=== PATIENT | female | born 1985 | race African-American/Black ===

== ENCOUNTER 2017-03-23 08:39 | Observation (INO) | payer OTHER ==
[~2017-03-23 08:39] MED LIST: DEPO SHOT
--- OUTSIDE RECORDS SUMMARY | 2017-03-23 08:42 | XMS REPORT | Clinical Summary ---
Author Author [facility] Address Unknown Phone Unavailable Care Team Providers Care Physical Science Technician Name Role Phone Brit Castro MD PCP Allergies Active Allergy Reactions Severity Noted Date Comments No Known Drug Allergies 05/25/2015 Current Medications Prescription Sig. Disp. Refills Start End Date Status Date medroxyPROGESTERone 150 09/15/19 Active mg/mL syringe 16 Active Problems Problem Noted Date Nasal congestion 05/25/2015 Family History Medical History Relation Name Comments Breast cancer Maternal Aunt 2 aunts Hypertension Mother Vitiligo Mother Relation Name Status Comments Cousin benign brain tumors Maternal Aunt Mother Alive Social History Tobacco Use Types Packs/Day Years Used Date Current Every Day Smoker Cigars 4 Smokeless Tobacco: Never Used Comments: 1 cigar a day Alcohol Use Drinks/Week oz/Week Comments Yes 2 Glasses of 1.2 wine Sex Assigned at Date Recorded Not on file Last Filed Vital Signs Not on file Plan of Treatment Health Maintenance Due Date Last Done Comments INFLUENZA VACCINE 09/05/2016 PAP SMEAR 04/06/2018 04/07/2015 Results Not on fileafter 03/22/2016 Insurance Payer Benefit Subscriber ID Type Phone Address Plan / Group [facility] xxxxxxxxx HMO/PPO THCARE CHOICE/CHO ICE +
[2017-03-23] MEDS ORDERED: CEFOXITIN SOD 1 GM VIAL ONE (09:18)
[2017-03-23] MEDS ORDERED: CLINDAMYCIN PHOS 900MG/ D5W 50 50 ML IV ONE (09:18)
[2017-03-23] MEDS ORDERED: BACITRACIN 50,000 UNIT VIAL ONE (09:29)
[2017-03-23] MEDS ORDERED: IOPAMIDOL 610MG/1ML 300 MG/ML VIAL IV ONE (09:29)
[2017-03-23] MEDS ORDERED: BUPIVACAINE 0.25% 30ML SDV INJ ONE (09:29)
[2017-03-23] MEDS ORDERED: LIDOCAINE 1% W/EPINEPHRINE 20 ML VIAL ONE (09:48)
[2017-03-23] MEDS ORDERED: NEOSTIGMINE 1 MG/ML 10ML VIAL ONE (09:48)
[2017-03-23] MEDS ORDERED: METHYLENE BLUE 1% INJ 10 ML VIAL INJ ONE (11:11)
[2017-03-23] MEDS ORDERED: HYDROMORPHONE 1MG/1ML INJ ONE (12:50)
[2017-03-23] MEDS ORDERED: LIDOCAINE HCL 2% LOCAL INJ 5 ML SDV VIAL INJ ONE (13:31)
[2017-03-23] MEDS ORDERED: PROPOFOL IV EMULSION 10 MG/ML 20 ML VIAL ONE (13:31)
[2017-03-23] MEDS ORDERED: SEVOFLURANE INHAL SOLN 250 ML PEN BTL ONE (13:31)
[2017-03-23] MEDS ORDERED: DEXAMETHASONE SOD PHOS INJ 4 MG/ML VIAL ONE (13:31)
[2017-03-23] MEDS ORDERED: ONDANSETRON HCL INJ 2 MG/ML VIAL ONE (13:31)
[2017-03-23] MEDS: D5.45%NS/KCL 20MEQ 1,000 ML IV SCH ×2 (13:42→21:21)
[2017-03-23] MEDS ORDERED: BISACODYL 5 MG TAB EC PO PRN (13:45)
[2017-03-23] MEDS ORDERED: HYDROCODONE/APAP 5MG-325MG TAB PO PRN (13:45)
[2017-03-23] MEDS ORDERED: PROMETHAZINE HCL (IM) 25 MG/ML VIAL IV PRN (13:45)
[2017-03-23] MEDS ORDERED: MORPHINE SULFATE 2 MG/ML SYR IV PRN (13:45)
[2017-03-23] MEDS ORDERED: DIPHENHYDRAMINE HCL 25 MG CAP PO PRN (13:45)
[2017-03-23] MEDS ORDERED: DOCUSATE SODIUM 100 MG CAP PO PRN (13:45)
--- OUTSIDE RECORDS SUMMARY | 2017-03-23 14:13 | XMS REPORT | Clinical Summary ---
Author Author [facility] Address Unknown Phone Unavailable Care Team Providers Care Machinist Brake Name Role Phone Brit Castro MD PCP [...] ID Type Phone Address Plan / Group [facility] xxxxxxxxx HMO/PPO THCARE CHOICE/CHO ICE +
[2017-03-23 14:46] VITALS: BP 114/59
[2017-03-23 16:36] VITALS: BP 130/82
[2017-03-23] MEDS: HYDROMORPHONE 1MG/1ML INJ IV PRN ×2 (16:37→23:41)
[2017-03-23] MEDS: CLINDAMYCIN PHOS 900MG/ D5W 50 50 ML IV SCH (18:00)
[2017-03-23] MEDS ORDERED: FENTANYL CITRATE/PF 100MCG/2 ML INJ ONE (18:23)
[2017-03-23] MEDS ORDERED: MIDAZOLAM HCL 2 MG/2 ML VIAL ONE (18:23)
[2017-03-23 18:30] VITALS: BP 130/82
--- NOTE | 2017-03-23 19:20 | History and Physical ---
HISTORY OF PRESENT ILLNESS: Patient was has hospitalized immediately postop. See operative notes from the patient's urologist. No known drug allergies. Prior admission meds included only Depo-Provera every 3 months by the patient's building trades instructor. On complete review of systems the patient denies current adverse symptoms. No chronic illnesses according to the patient. 4, spontaneously aborted twice. Two vaginal deliveries. One caesarean delivery. One set of twins. Cerclage with last 2015. History has included mixed incontinence. Intermittent urinary tract infections, overactive bladder, and bladder neck obstruction per prior notes. Excision of sling, cystoscopy, retrograde pyelograms, planned procedures this morning. Electronic medical record charted lab includes negative test. Retrograde pyelogram done. Report pending. EXAM VITALS: Temperature 97.6. Pulse 82 and regular. Respiratory rate 18. Blood pressure 130/82, O2 sat 98%. HEENT: No icterus or pallor. Pupils round, reactive. Throat clear. NECK: Supple. Carotids palpable. PULMONARY: Auscultation S1, S2 within normal limits. Lungs clear. ABDOMEN: Soft. Overweight. Bowel sounds normal. EXTREMITIES: Free of edema clubbing or cyanosis. NEURO: DTRs 1+ symmetrical. Babinski's negative. Sensorium is clear. CURRENT IMPRESSION: Status post fixation ureteral saline repair excision of fistulas, excision on sutures. See operative note as mentioned. To continue followup. See postop orders. Including broad-spectrum antibiotics per . Home when clear with . Job#: [id number]
[2017-03-23 20:00] VITALS: BP 111/69
[2017-03-23] MEDS: CEFOXITIN 2GM/ D5W 50ML 50 ML IV SCH (20:00)
[2017-03-24] VITALS: BP 104/55
[2017-03-24 00:19] VITALS: BP 104/33
[2017-03-24] MEDS: CEFOXITIN 2GM/ D5W 50ML 50 ML IV SCH (01:33)
[2017-03-24] MEDS: CLINDAMYCIN PHOS 900MG/ D5W 50 50 ML IV SCH ×2 (02:15→09:28)
[2017-03-24] MEDS: D5.45%NS/KCL 20MEQ 1,000 ML IV SCH (02:16)
[2017-03-24] MEDS: HYDROMORPHONE 1MG/1ML INJ IV PRN ×2 (03:48→09:28)
[2017-03-24 04:00] VITALS: BP 104/82
[2017-03-24 05:36] LABS: BASOPHILS % 0.2 % (0.0-1.0); EOSINOPHILS % 0.3 % (0.0-6.0); HEMATOCRIT 26.9 % (34.2-44.1); HEMOGLOBIN 8.7 g/dL (12.0-16.0); LYMPHOCYTES # (AUTO) 2.5 (1.0-3.2); LYMPHOCYTES % 17.9 % (18.0-39.1); MEAN CORPUSCULAR HGB CONC 32.3 g/dL (31-35); MEAN CORPUSCULAR VOLUME 89.7 fL (81-99); MONOCYTES # (AUTO) 1.2 (0.2-0.8); MONOCYTES % 8.7 % (4.4-11.3); NEUTROPHILS # (AUTO) 10.1 (2.1-6.9); NEUTROPHILS % 72.5 % (38.7-80.0); PLATELET COUNT 200 x10e3/uL (140-360); RED CELL DISTRIBUTION WIDTH 13.3 % (11.7-14.4)
[2017-03-24 05:54] LABS: ANION GAP 10.8 mmol/L (8-16); BLOOD UREA NITROGEN 7 mg/dL (7-26); BUN/CREATININE RATIO 10 (6-25); CALCIUM 7.8 mg/dL (8.4-10.2); CARBON DIOXIDE 21 mmol/L (22-29); CHLORIDE 109 mmol/L (98-107); CREATININE, SERUM 0.73 mg/dL (0.57-1.11); EST GLOMERULAR FILTRATION RATE > 60 ML/MIN (60-); GLUCOSE 125 mg/dL (74-118); POTASSIUM 3.8 mmol/L (3.5-5.1); SODIUM 137 mmol/L (136-145)
[2017-03-24 07:54] VITALS: BP 103/58
[2017-03-24 09:53] VITALS: BP 103/58
[2017-03-24] MEDS ORDERED: PROMETHAZINE 12.5MG/ NACL 0.9% 50 ML IV PRN (11:45)
[2017-03-24 12:05] VITALS: BP 110/62
--- NOTE | 2017-03-25 10:34 | Discharge Summary ---
See also operative notes. The patient was hospitalized immediately postoperatively. History had included mixed incontinence, recurrent urinary tract infections, overactive bladder, and bladder neck obstruction. Patient underwent excision of sling, cystoscopy, and retrograde pyelograms. She was supported here with analgesics, broad-spectrum antibiotics, and intravenous fluids. Course was one of progressive improvement and the patient was ambulating on the final hospital day. Vital signs remained normal. Glucose 125. Chemistries otherwise normal. White count 13.9 on this morning of March 24, 2017, with hemoglobin 8.7. Patient will follow up closely with her urologist, on Rees post discharge. She will continue Tylenol No. 3, Ditropan, and Levaquin per 250 mg daily. FINAL IMPRESSIONS: Status post surgery as above. Excision of fistulas. Excision of sutures. Excision of sling, cystoscopy, and retrograde pyelograms. MARGARET BAUER MD Job#: [id number] SAK
--- NOTE | 2017-05-27 11:44 | Operative Report ---
DATE OF PROCEDURE: March 23, 2017 PREOPERATIVE DIAGNOSES 1. Bladder neck obstruction. 2. Recurrent urinary tract infections. POSTOPERATIVE DIAGNOSES 1. Bladder neck obstruction. 2. Recurrent urinary tract infections. 3. Vesicovaginal fistula. OPERATIONS PERFORMED 1. Urethrolysis. 2. Excision of midurethral sling. 3. Cystourethroscopy with bilateral ureteral dilatation and retrograde ureteropyelography (separate procedure performed for the urinary tract infections). 4. Interpretation of retrograde ureteropyelography. 5. Supervision of fluoroscopy. No radiologist present. 6. Repair of vesicovaginal fistula requiring a transvesical approach that was done endoscopically in order to place a catheter through the fistula tract, and transvaginal approach to excise the fistulous tract and close the vesicovaginal fistula in 4 layers. ANESTHESIA: General. COMPLICATIONS: None. CLINICAL SUMMARY: Ni Celaya is a 32-year-old woman who underwent placement of a midurethral sling. The patient's incontinence persisted and in some ways worsened. The patient then subsequently presented to my practice. She underwent evaluation in the office, including urodynamic testing, which showed that she has signs of obstruction of the bladder outlet. Examination in the office did not reveal any fistula. We then brought her to the operating room in order to excise her sling in hopes of relieving the bladder neck obstruction or bladder outlet obstruction. She understood the risks of bleeding, infection, injury to adjacent structures, and potential need for additional procedures and she elected to proceed. OPERATIVE PROCEDURE IN DETAIL: Informed consent was verified. Ni Celaya was properly identified and taken to the operating room, and placed on the operating table in the supine position. Anesthesia was uneventfully begun. The patient was then carefully and gently repositioned in the dorsal lithotomy position with all pressure points well-padded. Her abdomen, perineum and genitalia were prepared and draped in the usual sterile fashion. Labial stay sutures were utilized. A Rees catheter was placed. Marcaine with epinephrine was utilized to infiltrate submucosally along the anterior vagina. An incision was made in the midline of the anterior vaginal wall. We developed bilateral vaginal wall flaps. We dissected down just cephalad to the bladder neck region initially. We then identified the midurethral sling. The patient's urethra was rather fixed. We grasped the sling after we isolated on one wide and divided it. We then traced the sling material as far as we could laterally and then incised it. We then traced the sling in the other direction as laterally as possible and incised it as well. The urethra still seemed to be fixed. We then gently mobilized the urethra as we performed the urethrolysis in order to provide some mobility to the urethra so it does not encase itself in scar again and cause secondary obstruction. We then evaluated further now that we had excellent exposure, and identified what appeared to be a dimple along the anterior vaginal wall, but in a more cephalad position than our dissection. Also, there was some hard material noted in that region as well. We decided at this point cystoscopy needed to be performed. Prior to performing cystoscopy, a solution of methylene blue was then injected through the catheter into the patient's bladder. We saw methylene blue staining through the dimple that we identified thus proving the diagnosis of vesicovaginal fistula. We then removed the Rees catheter, and the cystoscope was introduced into the bladder. Panendoscopy of the urinary bladder revealed trigonitis. It also revealed the fistulous tract in the midline. Normally positioned and configured ureteral orifices were identified. Also, there appeared to be an extrinsic bulging into the bladder from the right hand side. We placed open-ended ureteral catheters into each ureter. Then we placed a catheter into this fistulous tract. We injected contrast bilaterally and performed retrograde pyelograms. Interpretation of retrograde ureteropyelography. Contrast was instilled in a retrograde fashion bilaterally. There were no tumors. No stones and no diverticula. Unobstructed drainage was observed bilaterally fluoroscopically. We then went back to a vaginal approach. We extended our incision in a cephalad fashion and extended our vaginal wall flaps bilaterally thus to expose the underside of the bladder. We identified this very thick, very hard suture. There was a very large knot in the midline. This knot was pointing anteriorly poking into the bladder. This may be the etiology of the vesicovaginal fistula. This does not appear to be a suture. I t seemed to be approximating the sacrospinous ligaments and bridging them with this suture material. We excised this material and sent it for histopathological analysis. We then followed the catheter that we placed through the fistulous tract via the bladder circumferentially as we excised the fistulous tract thus we were able to notice bladder mucosa. We approximated the bladder mucosa in utilizing chromic suture. We then utilized a secondary layer with interrupted chromic suture to approximate the seromuscular layer. We then found additional paravaginal tissue to provide a 3rd layer. The vaginal mucosa provided a 4th layer of closure. We copiously irrigated at each point of the closure. Once the vesicovaginal fistula was closed, we reapproximated the remainder of the vaginal incision with heavy Vicryl suture. Ureteral catheters were removed now that we no longer needed them for identification and avoidance of injury. A 24-Korean Rees catheter was placed. It was irrigated to and fro to ensure it worked properly. Vaginal packing was placed. Labia stay sutures were removed. The patient was uneventfully reversed from anesthesia and taken to the recovery room in stable condition. There were no complications to the procedure. The patient tolerated the procedure well. Sponge, needle and instrument counts were correct times 2 at the end of the case. Plans will be to admit the patient overnight for intravenous antibiotics and pain control. Following this, we will follow the patient up on an outpatient basis. Patient will need a cystogram prior Rees catheter removal. Should the patient need a secondary repair and should this repair fail, then a transabdominal approach involving the transvesical approach will be required with the interposition of an omental flap. Consideration was given to utilization of a Marcius flap in this case. However, due to this being a very young woman, we felt that we did not want to make additional incisions in her external genitalia and to avoid any deformities and any additional scar. Also, we decided to avoid this flap in light of the fact that we had just dissected out and excised the pubovaginal sling. Job#: [id number] FRANCY GILES
== END 2017-03-24 12:14 | disposition home or self-care (01) ==
LOC: OR 08:39 → IMCU 14:11
PROVIDERS: ADMIT Urology; ATTEND Urology
DX: N82.0 Vesicovaginal fistula (principal); N39.498 Other specified urinary incontinence; N32.0 Bladder-neck obstruction; Z87.440 Personal history of urinary (tract) infections
CPT/HCPCS: 36415; 57287; 57330; 74420; 80048; 81025; 85025; 88302; G0378 ×2; J0694 ×2; J1100; J1170 ×2; J2001; J2250; J2405; J2710; Q9967; 88300; 88304

== ENCOUNTER → 2017-04-03 | Outpatient (CLI) | payer OTHER ==
[~2017-04-03] MED LIST changes: +SODIUM CHLORIDE 0.9% 500ML 500 ML ONE
--- NOTE | 2017-04-03 14:14 | Diagnostic Imaging Report ---
PROCEDURE:CT PELVIS WITH CONTRAST (CT cystogram) COMPARISON:None. INDICATIONS:VESICO VAGINAL FISTULA. Previous history of bladder suspension. TECHNIQUE:After obtaining the patient's consent, CT images were obtained with non-ionic contrast material injection into the bladder. Images were acquired in maximum fill and on post drainage. CONTRAST:150 mL of 50mL Isovue 370:500mL saline mixture FINDINGS: PELVIC NODES:Normal. PELVIC ORGANS:Bladder is moderately distended with a Rees catheter in place. Air within the bladder related to the Rees catheter placement. There is contrast leak seen within the vagina. A thin track was identified between the bladder and the vagina best seen on post drainage images. BONES:Normal. OTHER:Foci of air in the right extraperitoneal space. CONCLUSION: Patent vesicovaginal fistula. Rees was left in place. Dictated by: Omega Gregory M.D. on 04/03/2017 at 14:13 Electronically approved by: Omega Gregory M.D. on 04/03/2017 at 14:13
== END ==
LOC: CT 12:33
PROVIDERS: ATTEND Urology
DX: N39.0 Urinary tract infection, site not specified (principal)
CPT/HCPCS: 72193; 81025; J7040

== ENCOUNTER → 2017-04-18 | Outpatient (CLI) | payer OTHER ==
--- NOTE | 2017-04-18 15:34 | Diagnostic Imaging Report ---
PROCEDURE: CT PELVIS WITH CONTRAST (CT cystogram) COMPARISON: CT cystogram 04/03/2027. INDICATIONS: VESICO VAGINAL FISTULA. Previous history of bladder suspension. TECHNIQUE: After obtaining the patient's consent, CT images were obtained with non-ionic contrast material injection into the bladder. Images were acquired in maximum fill and on post drainage. CONTRAST: 150 mL of 50mL Isovue 370:500mL saline mixture FINDINGS: PELVIC NODES: Normal. PELVIC ORGANS: Bladder is moderately distended with a Rees catheter in place. Air within the bladder related to the Rees catheter placement. There is a trace residual contrast leak seen within the vesicovaginal tract. BONES: Normal. OTHER: Foci of air in the right extraperitoneal space. CONCLUSION: Improving but trace residual contrast leak seen within the vesicovaginal tract. Rees was left in place. Dictated by: Omega Gregory M.D. on 04/18/2017 at 15:34 Electronically approved by: Omega Gregory M.D. on 04/18/2017 at 15:34
== END ==
LOC: CT 13:57
PROVIDERS: ATTEND Urology
DX: N39.0 Urinary tract infection, site not specified (principal); N32.0 Bladder-neck obstruction
CPT/HCPCS: 72193; 81025; J7040

== ENCOUNTER → 2017-04-27 | Outpatient (CLI) | payer OTHER ==
--- NOTE | 2017-04-27 15:28 | Diagnostic Imaging Report ---
PROCEDURE:CT PELVIS WITH CONTRAST COMPARISON:CT Pelvis 04/18/2017 and 04/03/2017 INDICATIONS:BLADDER-NECK OBSTRUCTION, URINARY TRACT INFECTION TECHNIQUE:After obtaining the patient's consent, CT images were obtained without IV contrast. 50 cc of Isovue 370 mixed with 500 cc of saline which was administered into the bladder via Rees catheter. CT cystogram protocol was performed. FINDINGS: PELVIC NODES: Normal. PELVIC ORGANS: Bladder is moderately distended with a Rees catheter in place. Air within the bladder related to the Rees catheter placement. A persistent tiny vesicovaginal fistula is noted (sagittal series 300 image 65) with a minimal amount of contrast in the vagina, improved from 04/03/2017. BONES: Normal. OTHER: Small amount of likely physiologic free fluid in the pelvis. CONCLUSION: Residual trace residual contrast leak seen within the vesicovaginal tract. Rees catheter was removed after preliminary review at the scanner. Upon further review on PACS, the tiny residual fistula was identified. Findings were discussed with Dr. Dang and the patient was called back for Rees placement. The plan was discussed with the patient and she declined the Rees. The conversation with the patient was relayed to Dr. Dang. Dictated by: Karl Bardales M.D. on 04/27/2017 at 14:40 Electronically approved by: Karl Bardales M.D. on 04/27/2017 at 15:28
== END ==
LOC: CT 12:29
PROVIDERS: ATTEND Urology
DX: N32.0 Bladder-neck obstruction (principal); N39.0 Urinary tract infection, site not specified
CPT/HCPCS: 72193; 81025; J7040